=== PATIENT | male | born 1960 | race Caucasian/White ===

== ENCOUNTER 2025-06-11 19:10 | Inpatient (IN) | payer OTHER ==
[~2025-06-11] VITALS: Ht 167.6 cm; Wt 70.3 kg
[2025-06-11 20:14] LABS: PLATELET COUNT (AUTO) 215 K/uL (150-450); RED BLOOD CELL COUNT(AUTO) 5.54 MIL/uL (4.5-6.0); RED CELL DISTRIBUTION WIDTH 15.0 % (11.5-15.0); WHITE BLOOD COUNT (AUTO) 16.0 K/uL (4.3-11.0)
[2025-06-11 20:22] LABS: CALCIUM, SERUM 8.9 mg/dL (8.5-10.1); CREATININE 1.2 mg/dL (0.6-1.3); SODIUM SERUM 134.0 mmol/L (136-145); UREA NITROGEN, BLOOD 14.0 mg/dL (7-18)
[2025-06-11] MEDS ORDERED: IOHEXOL-300 100 ML VIAL IV ONE (20:25)
[2025-06-11] MEDS ORDERED: IV NS 0.9% 250 ML IV ONE (20:25)
[2025-06-11 20:28] LABS: ASPARTATE AMINOTRANSFERASE 219.0 U/L (15-37); TOTAL PROTEIN, SERUM 7.8 g/dL (6.4-8.2)
[2025-06-11] MEDS ORDERED: VANCOMYCIN 1 GM /D5W 250 ML PB IV ONE (20:43)
[2025-06-11] MEDS ORDERED: PIPERACI/TAZO 3.375GM/D5W 50ML PB IV ONE (20:43)
[2025-06-11] MEDS: PIPERACILLIN /TAZOBACTAM 3.375 G in IV D5W 50 ML IV ONE (20:45)
[2025-06-11] MEDS: IV NS 0.9% 1,000 ML BAG IV ONE (20:45)
[2025-06-11 20:46] LABS: APPEARANCE,URINE CLEAR (CLEAR); BLOOD, URINE NEGATIVE Ery/uL (NEGATIVE); LEUKOCYTE ESTERASE ,URINE NEGATIVE (NEGATIVE); NITRITE, URINE POSITIVE (NEGATIVE); UGLUCOSE NEGATIVE (NEGATIVE)
[2025-06-11 21:03] LABS: SQUAMOUS EPITHELIAL CELL,UR None Seen /HPF (None Seen)
[2025-06-11 21:14] LABS: ADD URINE CULTURE YES; FINE GRANULAR CASTS,URINE Rare /LPF (None Seen)
[2025-06-11 21:19] LABS: LACTIC ACID 3.6 mmol/L (0.4-2.0)
[2025-06-11 21:22] VITALS: BP 116/67; TEMP 98.2; O2SAT 97
[2025-06-11] MEDS: VANCOMYCIN 1 GM in IV D5W 250 ML IV ONE (21:40)
[2025-06-11 22:30] VITALS: BP 116/57; TEMP 98.2; O2SAT 97
[2025-06-11] MEDS ORDERED: DOSING PER PHARMACY-VANCOMYCIN IV XX PRN (23:30)
[2025-06-12] MEDS ORDERED: OLME40TA18 PO (00:01)
[2025-06-12] MEDS ORDERED: AMLO-213 PO (00:02)
[2025-06-12] MEDS ORDERED: PIPERACI/TAZO 3.375GM/D5W 50ML PB IV ONE (02:35)
[2025-06-12] MEDS: PIPERACILLIN /TAZOBACTAM 3.375 G in IV D5W 50 ML IV ONE (02:43)
[2025-06-12 07:05] LABS: PLATELET COUNT (AUTO) 172 K/uL (150-450); RED BLOOD CELL COUNT(AUTO) 4.98 MIL/uL (4.5-6.0); RED CELL DISTRIBUTION WIDTH 14.8 % (11.5-15.0); WHITE BLOOD COUNT (AUTO) 9.2 K/uL (4.3-11.0)
[2025-06-12 07:14] LABS: CALCIUM, SERUM 8.9 mg/dL (8.5-10.1); CREATININE 1.0 mg/dL (0.6-1.3); PHOSPHORUS 2.6 mg/dL (2.5-4.9); SODIUM SERUM 139.0 mmol/L (136-145); UREA NITROGEN, BLOOD 12.0 mg/dL (7-18)
[2025-06-12 07:16] LABS: LDL 47.0 mg/dL (0-99)
[2025-06-12 07:30] VITALS: BP 129/81; TEMP 100.2; O2SAT 98
[2025-06-12 07:43] LABS: INR 1.16 (0.91-1.10)
[2025-06-12] MEDS: PANTOPRAZOLE 40 MG TABLET.DR PO SCH (08:57)
[2025-06-12] MEDS: VANCOMYCIN 750 MG in IV D5W 250 ML IV SCH (08:57)
[2025-06-12 10:00] VITALS: BP 129/81; TEMP 100.2; O2SAT 98
[2025-06-12] MEDS ORDERED: PIPERACILLIN /TAZOBACTAM 3.375 G in IV D5W 100 ML IV SCH (10:00)
[2025-06-12] MEDS: PIPERACILLIN /TAZOBACTAM 3.375 G in IV D5W 50 ML IV SCH (12:42)
[2025-06-12] MEDS: VANCOMYCIN 1 GM in IV D5W 250ml IV SCH (19:37)
[2025-06-12 20:00] VITALS: BP 129/72; TEMP 99.1; O2SAT 99
[2025-06-13 05:08] LABS: HBSAG SCREEN Negative (Negative); HEPATITIS A AB, IgM Negative (Negative); HEPATITIS B CORE AB, IgM Negative (Negative)
[2025-06-13 07:16] LABS: PLATELET COUNT (AUTO) 175 K/uL (150-450); RED BLOOD CELL COUNT(AUTO) 5.14 MIL/uL (4.5-6.0); RED CELL DISTRIBUTION WIDTH 15.1 % (11.5-15.0); WHITE BLOOD COUNT (AUTO) 7.6 K/uL (4.3-11.0)
[2025-06-13 07:30] VITALS: BP 128/85; TEMP 99; O2SAT 97
[2025-06-13 08:01] LABS: ASPARTATE AMINOTRANSFERASE 38.0 U/L (15-37); CALCIUM, SERUM 9.1 mg/dL (8.5-10.1); CREATININE 0.8 mg/dL (0.6-1.3); SODIUM SERUM 143.0 mmol/L (136-145); TOTAL PROTEIN, SERUM 7.1 g/dL (6.4-8.2); UREA NITROGEN, BLOOD 14.0 mg/dL (7-18)
[2025-06-13 09:35] LABS: FREE PSA 0.17 ng/mL (0.00-45); PROSTATE SPECIFIC ANTIGEN SCR 1.27 ng/mL (0.00-4.00)
[2025-06-13 15:52] VITALS: BP 136/82; TEMP 98.2; O2SAT 99
[2025-06-13 17:33] LABS: HIV-1/2 ANTIBODY NON REACTIVE (NONREACTIVE)
[2025-06-13 20:00] VITALS: BP 117/71; TEMP 98.2; O2SAT 98
[2025-06-14 06:44] LABS: FIBRINOGEN ACTIVITY 429.0 Mg/dL (213-485); INR 0.98 (0.91-1.10)
[2025-06-14 06:48] LABS: PLATELET COUNT (AUTO) 186 K/uL (150-450); RED BLOOD CELL COUNT(AUTO) 5.33 MIL/uL (4.5-6.0); RED CELL DISTRIBUTION WIDTH 15.1 % (11.5-15.0); WHITE BLOOD COUNT (AUTO) 6.4 K/uL (4.3-11.0)
[2025-06-14 06:50] LABS: CALCIUM, SERUM 9.3 mg/dL (8.5-10.1); CREATININE 1.0 mg/dL (0.6-1.3); SODIUM SERUM 139.0 mmol/L (136-145); UREA NITROGEN, BLOOD 16.0 mg/dL (7-18)
[2025-06-14 08:00] VITALS: BP 137/90; TEMP 98.2; O2SAT 99
[2025-06-14] MEDS ORDERED: LEVO500T90 PO (10:20)
== END 2025-06-14 13:03 | disposition home or self-care (01) | DRG 463 ==
LOC: ER 19:16 → MED 21:20
PROVIDERS: ADMIT Registered Nurse Psychiatric/Mental Health; ATTEND Internal Medicine
DX: N39.0 Urinary tract infection, site not specified (principal); D84.9 Immunodeficiency, unspecified; E87.20 Acidosis, unspecified; C43.9 Malignant melanoma of skin, unspecified; C78.7 Secondary malignant neoplasm of liver and intrahepatic bile duct; E88.09 Other disorders of plasma-protein metabolism, not elsewhere classified; E80.6 Other disorders of bilirubin metabolism; B96.89 Other specified bacterial agents as the cause of diseases classified elsewhere; Z85.038 Personal history of other malignant neoplasm of large intestine; Z90.49 Acquired absence of other specified parts of digestive tract; I10 Essential (primary) hypertension; R73.9 Hyperglycemia, unspecified; R74.01 Elevation of levels of liver transaminase levels; K40.20 Bilateral inguinal hernia, without obstruction or gangrene, not specified as recurrent; Z79.60 Long term (current) use of unspecified immunomodulators and immunosuppressants
CPT/HCPCS: 36415; 71045-TC; 74181-TC; 76700-TC; 80048-TC; 80061-TC; 80076-TC; 80202-TC; 81001; 82378; 83605-TC; 83690-TC; 83735-TC; 84100-TC; 84153-TC; 84154-TC; 85025-TC; 85396; 85610-TC; 87040-TC; 87086-TC; 87806; A4223; A6253; G0378; J2543; J3373; J3374; J7030; J7040; J7050; J7060; Q9967